=== PATIENT | male | born 1975 ===

== ENCOUNTER 2021-02-01 15:46 | Emergency (ER) | payer BC, SELFPAY ==
[2021-02-01] VITALS (33 sets, daily range): BP systolic 122–139; BP diastolic 72–101; PULSE 67–98; RESP 12–24; TEMP 36.8; O2SAT 93–98
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
[2021-02-01 16:07] LABS: Abs Immature Grans 0.12 10^3/uL (0.0-0.06); Absolute Eosinophil Count 0.29 10^3/uL (0.0-0.7); Absolute Lymphocyte Count 2.57 10^3/uL (1.2-3.4); Absolute Monocyte Count 0.96 10^3/uL (0.1-0.8); Absolute Neutrophil Count 8.38 10^3/uL (1.2-6.7); Basophils % 0.8; Eosinophils % 2.3; HCT 50.3 % (40.0-50.0); Lymphocytes % 20.7; MCH 29.1 pg (27.0-33.0); MCHC 33.8 % (32.0-36.0); MPV 8.9 fL (8.0-11.0); Monocytes % 7.7; Neutrophils % 67.5; Nucleated RBC 0 %; Platelet Count 300 10^3/uL (130-400); RBC 5.85 10^6/uL (4.36-5.78); RDW 11.9 % (11.8-14.1); RDW-SD 37.5 fL; WBC 12.42 10^3/uL (4.4-10.8)
[2021-02-01] MEDS: Omnipaque 350 MG/ML 100 ML BTL IV (16:11)
[2021-02-01 16:15] LABS: ALT 41 U/L (16-63); AST 51 U/L (15-37); Albumin 3.7 g/dL (3.4-5.0); Alkaline Phosphatase 65 U/L (46-116); Anion Gap 14.8 mmol/L (3-11); BUN 11 mg/dL (7-18); Bilirubin, Total 0.3 mg/dL (0.2-1.0); CO2 23.2 mmol/L (21.0-32.0); CREATININE 0.8 mg/dL (0.70-1.30); Calcium 8.8 mg/dL (8.5-10.1); Chloride 103 mmol/L (98-107); ETHANOL BLOOD 208.3 mg/dL (<3); Glucose 152 mg/dL (74-106); Potassium 3.4 mmol/L (3.5-5.1); Sodium 141 mmol/L (136-145); Total Protein 7.3 g/dL (6.4-8.2)
[2021-02-01 16:23] LABS: PTT Activated 22.1 sec (21.0-27.5); Prothrombin Time 10.5 sec (9.3-11.0)
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
[2021-02-01] MEDS: HYDROmorphone 2 MG/ML VIAL 1 MG IVP (16:38)
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
[2021-02-01] MEDS: Lactated Ringers 1,000 ML 125 ML IV (16:55)
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
[2021-02-01] MEDS: fentaNYL 100 MCG/2 ML VIAL IVP (17:18)
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
[2021-02-01] MEDS: Ondansetron 4 MG/2 ML VIAL IVP (18:42)
== END 2021-02-01 19:00 | disposition short-term general hospital (02) ==
LOC: ER 18:55
PROVIDERS: Emergency Provider Student in an Organized Health Care Education/Training Program
DX: S27.321A Contusion of lung, unilateral, initial encounter (principal); S42.191A Fracture of other part of scapula, right shoulder, initial encounter for closed fracture; S22.41XA Multiple fractures of ribs, right side, initial encounter for closed fracture; S42.001A Fracture of unspecified part of right clavicle, initial encounter for closed fracture; S02.40EA Zygomatic fracture, right side, initial encounter for closed fracture
CPT/HCPCS: 36415; 74177; 80053; 86850; 86900; 86901; 96361; 96374; 96375; 99285; 70450; 70486; 71260; 72125; 73060; 80320; 85025; 85610; 85730; 99284; J2405; J3010; J3490